=== PATIENT | male | born 1990 | race Caucasian/White ===

== ENCOUNTER 2018-11-20 20:38 | Emergency (ER) | payer OTHER ==
[~2018-11-20] VITALS: Ht 190.5 cm; Wt 72.6 kg
[~2018-11-20 20:38] MED LIST: ACET325 PO; ALBU90OI INH; CEPH500 PO; Crutch1 EACH MISC; DIPH50 PO; GARLIC; HYDACE5 PO; IBUP800 PO; NAPR500 PO; OXYACE5T PO; PENVK500 PO; PERM5TC TOP; PROM25 PO; PROM25S PR; Percocet 5-3251 EACH PO; RXHYDACE PO; RXOXYACE PO; SILSUL1TC TOP; SULTRIDS PO; TOCO1000 PO; TOCO400 PO; TRAM50 PO
[2018-11-20] MEDS ORDERED: ALBU90OI INH (21:54)
== END 2018-11-20 22:00 | disposition home or self-care (01) ==
LOC: ER 20:38
DX: R05 Cough (principal); F17.210 Nicotine dependence, cigarettes, uncomplicated
CPT/HCPCS: 71046; 94640; 99283-25

== ENCOUNTER 2020-12-10 00:05 | Emergency (ER) | payer OTHER ==
[~2020-12-10] VITALS: Ht 193 cm; Wt 74.8 kg
== END 2020-12-11 00:46 | disposition home or self-care (01) ==
LOC: ER 00:05
DX: S61.213A Laceration without foreign body of left middle finger without damage to nail, initial encounter (principal); F17.210 Nicotine dependence, cigarettes, uncomplicated; W01.198A Fall on same level from slipping, tripping and stumbling with subsequent striking against other object, initial encounter
CPT/HCPCS: 12001; 99282-25

== ENCOUNTER 2021-01-16 19:29 | Emergency (ER) | payer OTHER ==
[~2021-01-16] VITALS: Ht 190.5 cm; Wt 74.8 kg
[2021-01-16 19:46] LABS: BASOPHILS ABSOLUTE AUTO 0.03 K/mm3 (0.00-0.23); BASOPHILS PERCENT AUTO 0 % (0-2); EOSINOPHILS PERCENT AUTO 0 % (0-6); Hematocrit 38.2 % (37.0-53.0); Hemoglobin 13.3 g/dL (13.5-17.5); IMMATURE GRAN PERCENT AUTO 1 % (0-1); LYMPHOCYTES ABSOLUTE AUTO 2.33 K/mm3 (0.84-5.20); LYMPHOCYTES PERCENT AUTO 22 % (21-46); MONOCYTES ABSOLUTE AUTO 0.56 K/mm3 (0.16-1.47); MONOCYTES PERCENT AUTO 5 % (4-13); Mean Corpuscular HGB 33.8 pg (26.0-34.0); Mean Corpuscular HGB Conc 34.8 g/dL (31.5-36.5); Mean Corpuscular Volume 97 fL (80-100); Mean Platelet Volume 10.5 fL (9.1-12.4); NEUTROPHILS ABSOLUTE AUTO 7.49 K/mm3 (1.96-9.15); NEUTROPHILS PERCENT AUTO 71 % (41-73); Platelet Count 204 K/mm3 (150-400); RDW Coefficient Variation 13.1 % (11.7-14.2); RDW Standard Deviation 46.7 fL (35.1-46.3); Red Blood Cell Count 3.93 M/mm3 (4.30-5.90); White Blood Cell Count 10.51 K/mm3 (4.00-11.30)
[2021-01-16 20:12] LABS: Alanine Aminotransfer (ALT/SGP 270 U/L (12-78); Albumin, Blood 3.4 g/dL (3.4-5.0); Albumin/Globulin Ratio 1.3 (0.8-1.8); Alk Phos 47 U/L (50-136); Anion Gap 13 mmol/L (6-16); Aspartate Aminotrans (AST/SGOT 638 U/L (12-37); Bilirubin, Total 0.6 mg/dL (0.1-1.0); Blood Urea Nitrogen 8 mg/dL (8-24); Bun/Creatinine Ratio 6.1 (12.0-20.0); CO2, Blood 20 mmol/L (21-32); Calcium, Blood 8.2 mg/dL (8.5-10.1); Chloride, Blood 108 mmol/L (98-108); Creatinine, Blood 1.31 mg/dL (0.60-1.20); Ethanol (Alcohol), Blood, Med 235 mg/dL; Globulin, Blood 2.7 g/dL (2.2-4.0); Glomerular Filtration Rate >60 (60-); Glucose, Blood 110 mg/dL (70-99); International Normalized Ratio 1.07; Potassium, Blood 2.6 mmol/L (3.5-5.5); Prothrombin Time Results 11.5 Sec (9.7-11.5); Sodium, Blood 141 mmol/L (136-145); Total Protein, Blood 6.1 g/dL (6.4-8.2)
== END 2021-01-16 22:20 | disposition short-term general hospital (02) ==
LOC: ER 19:29
PROVIDERS: Emergency Medicine
DX: S36.113A Laceration of liver, unspecified degree, initial encounter (principal); F17.210 Nicotine dependence, cigarettes, uncomplicated; V49.40XA Driver injured in collision with unspecified motor vehicles in traffic accident, initial encounter; Y92.410 Unspecified street and highway as the place of occurrence of the external cause
CPT/HCPCS: 12002; 12011; 29125; 70450; 71045; 71260; 72125; 73100; 73590; 74177; 80053; 83690; 85025; 85610; 90471; 90714; 96365-59; 96375-59; 99285-25; G0480; J0690; J2405; J2550; Q9967

== ENCOUNTER 2022-01-20 23:30 | Emergency (ER) | payer OTHER ==
[~2022-01-20] VITALS: Ht 193 cm; Wt 74.8 kg
== END 2022-01-21 02:38 | disposition home or self-care (01) ==
LOC: ER 23:30
DX: S61.217A Laceration without foreign body of left little finger without damage to nail, initial encounter (principal); F17.210 Nicotine dependence, cigarettes, uncomplicated; W26.0XXA Contact with knife, initial encounter; Z23 Encounter for immunization; Z88.5 Allergy status to narcotic agent
CPT/HCPCS: 12001; 90471; 90714; 99282-25

== ENCOUNTER 2025-02-02 23:52 | Emergency (ER) | payer OTHER ==
[~2025-02-02] VITALS: Ht 185.4 cm; Wt 77.1 kg
[2025-02-03 00:14] VITALS: BP 125/82
== END 2025-02-03 01:50 | disposition home or self-care (01) ==
LOC: ER 23:52
DX: S13.4XXA Sprain of ligaments of cervical spine, initial encounter (principal); S09.90XA Unspecified injury of head, initial encounter; Z88.5 Allergy status to narcotic agent; F17.210 Nicotine dependence, cigarettes, uncomplicated; Z59.89 Other problems related to housing and economic circumstances; W01.0XXA Fall on same level from slipping, tripping and stumbling without subsequent striking against object, initial encounter
CPT/HCPCS: 70450; 72125; 99284-25